=== PATIENT | male | born 1965 ===

== ENCOUNTER 2021-11-05 13:48 | Emergency (ER) | payer SELFPAY ==
[2021-11-05] MEDS ORDERED: FAMOTIDINE 20 MG/2 ML INJ IV ONE (17:03)
[2021-11-05] MEDS ORDERED: ONDANSETRON 4 MG/2 ML INJ IV ONE (17:03)
[2021-11-05] MEDS ORDERED: SODIUM CHLORIDE 0.9% 1000 ML 1,000 ML IV ONE ×2 (17:45)
[2021-11-05 19:59] LABS: Basophils % (Auto) 0.6 % (0.0-1.8); Eosinophils # (Auto) 0.2 K/mm3 (0.0-0.4); Eosinophils % (Auto) 2.4 % (0.0-4.3); Hematocrit 43.3 % (35.5-45.6); Hemoglobin 15.2 gm/dl (11.8-15.2); Lymphocytes # (Auto) 1.9 K/mm3 (1.2-5.4); Lymphocytes % (Auto) 21.2 % (13.4-35.0); Mean Corpuscular HGB Conc 35 % (32-34); Mean Corpuscular Volume 94 fl (84-94); Monocytes # (Auto) 0.9 K/mm3 (0.0-0.8); Platelet Count 183 K/mm3 (140-440); Red Blood Count 4.62 M/mm3 (3.65-5.03); Red Cell Distribution Width 13.8 % (13.2-15.2)
[2021-11-05 20:18] LABS: Alanine Aminotransferase 21 units/L (7-56); Albumin 4.2 g/dL (3.9-5); Blood Urea Nitrogen 19 mg/dL (9-20); Calcium 9.1 mg/dL (8.4-10.2); Hemolysis Index 20
[2021-11-05 20:20] LABS: BUN/Creatinine Ratio 38
--- NOTE | 2021-11-05 21:08 | Cat Scan Report ---
CT ABDOMEN AND PELVIS WITH CONTRAST INDICATION / CLINICAL INFORMATION: hx of stage ii gastric cancer, p/w gen abdom pain 100ml of [id number] . TECHNIQUE: Axial CT images were obtained through the abdomen and pelvis after IV contrast. All CT sc ans at this location are performed using CT dose reduction for ALARA by means of automated exposure c ontrol. COMPARISON: None available. FINDINGS: Exam is limited secondary to patient's inability to raise arms. LOWER CHEST: Partially imaged cardiac device leads. LIVER: Hypoattenuating lesions scattered throughout the liver with Hounsfield units that cannot be ac curately measured due to streak artifact from patient's arms. GALLBLADDER: No significant abnormality. BILE DUCTS: No significant abnormality. PANCREAS: No significant abnormality. SPLEEN: No significant abnormality. ADRENALS: No significant abnormality. RIGHT KIDNEY / URETER: Subcentimeter foci of hypoattenuation are too small for accurate characterizat ion. LEFT KIDNEY / URETER: Upper pole cyst. STOMACH / SMALL BOWEL: No identifiable gastric mass or significant gastric wall thickening. Small bow el is normal in caliber. COLON: No significant abnormality. APPENDIX: No significant abnormality. PERITONEUM: No free fluid. No free air. No fluid collection. LYMPH NODES: No significant adenopathy. AORTA / ARTERIES: No significant abnormality. IVC / VEINS: No significant abnormality. URINARY BLADDER: No significant abnormality. REPRODUCTIVE ORGANS: No significant abnormality. ADDITIONAL FINDINGS: Small fat-containing umbilical hernia. SKELETAL SYSTEM: No significant abnormality. IMPRESSION: 1. No acute abnormality in the abdomen or pelvis. 2. No identifiable gastric mass or significant gastric wall thickening; although, sensitivity for det ection of intraluminal lesions on CT is limited. 3. Hypoattenuating left lobe liver lesions, likely cysts but indeterminate due to streak artifact fro m patient's arm down position. Signer Name: Rodrigue Leo MD Signed: 11/05/2021 9:04 PM Workstation Name: [id number]
--- NOTE | 2021-11-05 21:55 | Emergency Department Report ---
HPI - General Chief Complaint: Abdominal Pain PUI?: No Time Seen by Provider: 11/05/21 16:47 - HPI HPI: 56-year-old male with a history of stage II gastric cancer per patient's report, hypertension, hyperlipidemia, left AKA, presents for evaluation of abdominal pain. 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 He denies any chest pain shortness of breath difficulty breathing or palpitations. He denies any UTI symptoms. No melena hematochezia or hematemesis. Pain currently 4 out of 10. Remainder of his review of systems negative. ED Past Medical Hx - Past Medical History Previous Medical History?: Yes Additional medical history: Stage II gastric cancer, hypertension, hyperlipidemia, left [id number] amputation - Surgical History Past Surgical History?: Yes Additional Surgical History: Left [id number] amputation - Family History Family history: no significant - Social History Smoking Status: Smoker, Current Status Unknown - Medications Home Medications: Home Medications Medication Instructions Recorded Confirmed Last Taken Type Ondansetron [Zofran Odt] 4 mg PO Q8HR 3 Days #12 tab.rapdis 11/05/21 Unknown Rx ED Review of Systems ROS: Stated complaint: ABD PAIN Other details as noted in HPI Comment: All other systems reviewed and negative Physical Exam - Physical Exam Vital Signs: Vital Signs 11/05/21 13:48 Temperature 98.0 F Pulse Rate 96 H Respiratory 18 Rate Blood Pressure 150/86 [Left] O2 Sat by Pulse 96 Oximetry General: Gen: pt is well appearing, no acute distress, observed watching videos on his personal cellular telephone, comfortable appearing, no acute distress HEENT: Normocephalic atraumatic pupils equally round and reactive to light extraocular muscles intact sclera anicteric Neck: Full range of motion, no midline spinal tenderness palpation, no JVD, no carotid bruits, no nuchal rigidity CVS: S1-S2 regular rate and rhythm with no gallops rubs or murmurs, chest wall nontender Pulmonary: Clear to auscultation bilaterally, no wheezes rales or rhonchi Abdomen: Soft nondistended nontender no guarding or rebound tenderness, no palpable deformities or step-offs, normal active bowel sounds, no hepatosplenomegaly, no pulsatile masses : Deferred Extremities: No cyanosis no clubbing no edema, intact distal peripheral pulses, Integumentary: Skin normal, no petechia no purpura no abscess no lacerations no evidence of trauma no evidence of infection Neuro: Patient is awake alert and oriented to person place time situation, mentating well, cranial nerves II through XII intact, no focal neurodeficits, sensation grossly tact Psych: Calm cooperative, mood affect normal ED Course Vital Signs 11/05/21 13:48 Temperature 98.0 F Pulse Rate 96 H Respiratory 18 Rate Blood Pressure 150/86 [Left] O2 Sat by Pulse 96 Oximetry - Reevaluation(s) Reevaluation #1: 11/05/21 22:31 Patient reassessed. He is comfortable and well-appearing, stating he wants to be discharged home, will continue to monitor ED Medical Decision Making - Lab Data Result diagrams: 11/05/21 19:39 11/05/21 19:39 - Radiology Data Radiology results: report reviewed - Medical Decision Making 56-year-old male with multiple medical comorbidities presents for evaluation of mid abdominal pain, nausea and vomiting x3 days. Vital signs stable. Physical examination is unremarkable. Patient given antiemetics, intravenous fluids, and analgesics here. He reports complete resolution of his symptoms. He was given a p.o. challenge which she was able to tolerate without reproduction or worsening of his symptoms. CT scan and lab results demonstrate no acute pathology. No further emergent work-up warranted at this time. Patient deemed stable for discharge to home. Prior to discharge patient was given strict verbal and written return precautions. Patient verbalized understanding and agreement the plan of care Critical care attestation.: If time is entered above; I have spent that time in minutes in the direct care of this critically ill patient, excluding procedure time. ED Disposition Clinical Impression: Abdominal pain Disposition: HOME / SELF CARE / HOMELESS Is pt being admited?: No Does the pt Need Aspirin: No Condition: Stable Additional Instructions: The cause of your abdominal pain is unclear. Your CAT scan does not show any evidence of any masses or lesions in your stomach or anywhere else in your abdomen. Call your primary care doctor to schedule immediate follow-up appointment for reassessment. This is very important. Take Zofran as needed for nausea. For any pain you may have please take [id number] Maalox and/or Pepto-Bismol. Observe your symptoms very carefully. Return to the nearest emergency department soon as possible if you develop severe or worsening abdominal pain, vomiting, inability to tolerate liquids or solids, any fever of 100.4 Fahrenheit or higher, or if any other new worrisome symptoms develop. Prescriptions: Ondansetron [Zofran Odt] 4 mg PO Q8HR 3 Days #12 tab.rapdis
[2021-11-05 23:14] VITALS: BP 140/75
== END 2021-11-05 23:14 | disposition home or self-care (01) ==
LOC: ED 13:48
DX: R10.9 Unspecified abdominal pain (principal)
CPT/HCPCS: 36415; 74177; 80053; 83690; 85025; 85610; 96361; 96374; 96375; 99284; J2405; J3490; J7030; Q9967